=== PATIENT | female | born 1980 | race Two or more races ===

== ENCOUNTER 2018-12-21 21:58 | Emergency (ER) | payer MEDICAID ==
[~2018-12-21] VITALS: Ht 160 cm; Wt 70.8 kg
--- NOTE | 2018-12-21 22:30 | NUR ---
ED Nurse Note: RECIEVED PT FROM HOME ON [facility] AWAKE, ALERT AND ORIENTED X 4, PT HERE WITH C/O HEADACHE WITH DIZZINESS, NAUSEA AND EMESIS X 2 SINCE TODAY, PT DENEIS CP, SOB, FEVERS, DIARRHEA OR ANY OTHER COMPLAITNS, PT IS AMBULATORY WITH STEADY GAIT, DENIES ANY OTHER COMPLAINTS OR DISCOMFORTS, PT GOWNED AND ASSISTED TO CARDIAC MONITORING.
--- NOTE | 2018-12-21 22:50 | Emergency Room Report ---
History of Present Illness General Chief Complaint: Dizziness Source: Patient Present Illness HPI Patient presents 2 days of dizziness. She feels vertiginous when she is sitting or standing up. In addition to that she has headache during these episodes. There is no loss of consciousness. She feels nauseated and also epigastric pain during these times. She has not vomited. she's never had these episodes before. She denies any head trauma. No fevers, chills, tinnitus, ear pain, sore throat, chest pain, palpitations. She has not taken any medication. She rates the pain 9/10 when the episodes occur. She denies headache when she is not feeling dizzy. The headache is aching. It does not radiate. No history of diabetes or hypertension. No family history of strokes or aneurysms. Last menstrual period December 13 and normal for her. Allergies: Coded Allergies: No Known Allergies (Unverified , 12/21/18) Patient History Past Medical History: see triage record Social History: Denies: smoking Social History Narrative Not working at this time Last Menstrual Period: 12/13/2018 Now: No Reviewed Nursing Documentation: PMH: Agreed; PSxH: Agreed Nursing Documentation-PMH Past Medical History: No Stated History Review of Systems All Other Systems: negative except mentioned in HPI Physical Exam Vital Signs Date Time Temp Pulse Resp B/P (MAP) Pulse Ox O2 Delivery O2 Flow Rate FiO2 12/21/18 22:07 98.4 58 16 111/63 98 Room Air Sp02 EP Interpretation: reviewed, normal General Appearance: well appearing, no apparent distress, GCS 15 Head: normocephalic Eyes: bilateral eye normal inspection, bilateral eye PERRL, bilateral eye EOMI ENT: normal pharynx, TMs + canals normal, moist mucus membranes Neck: supple, no bony tend Respiratory: chest non-tender, lungs clear, normal breath sounds Cardiovascular #1: regular rate, rhythm Cardiovascular #2: 2+ radial (R) Gastrointestinal: normal inspection, normal bowel sounds, non tender, no mass, non-distended Musculoskeletal: back normal, gait/station normal, normal range of motion Neurologic: alert, oriented x3, rand tacker III-XII nml as tested, motor strength/tone normal, DTRs symmetric, sensory intact, cerebellar normal, normal gait, speech normal Psychiatric: anxious Skin: normal inspection, warm/dry Medical Decision Making Diagnostic Impression: Primary Impression: Cephalgia Qualified Codes: R51 - Headache Additional Impressions: Dizziness Epigastric pain ER Course Patient presents with what sounds like vertiginous dizziness associated with headache. Differential includes labyrinthitis, posterior fossa pathology, positional vertigo, viral syndrome, dehydration amongst others. She'll be evaluated with EKG, chest x-ray and labs. Patient be treated with Toradol and Zofran and Pepcid. She complains about epigastric pain along with the symptoms. Due to the nature of the pain CT of the head is indicated. EKG no injury. Chest x-ray clear. CT head normal. Labs unremarkable. Patient symptoms resolved completely with treatment. Discussed the need for outpatient follow-up and close observation. She was advised to return if the symptoms return. Patient stable for outpatient observation and treatment. Laboratory Tests Test 12/21/18 22:50 12/21/18 23:15 Urine Color Pale yellow Urine Appearance Slightly cloudy Urine pH 8 (4.5-8.0) Urine Specific [place] 1.015 (1.005-1.035) Urine Protein Negative (NEGATIVE) Urine Glucose (UA) Negative (NEGATIVE) Urine Ketones Negative (NEGATIVE) Urine Blood Negative (NEGATIVE) Urine Nitrite Negative (NEGATIVE) Urine Bilirubin Negative (NEGATIVE) Urine Urobilinogen Normal MG/DL (0.0-1.0) Urine Leukocyte Esterase 1+ (NEGATIVE) H Urine RBC 0-2 /HPF (0 - 2) Urine WBC 2-4 /HPF (0 - 2) Urine Squamous Epithelial Cells Few /LPF (NONE/OCC) Urine Bacteria Few /HPF (NONE) Urine HCG, Qualitative Negative (NEGATIVE) White Blood Count 9.8 K/UL (4.8-10.8) Red Blood Count 3.98 M/UL (4.20-5.40) L Hemoglobin 12.5 G/DL (12.0-16.0) Hematocrit 37.2 % (37.0-47.0) Mean Corpuscular Volume 93 FL (80-99) Mean Corpuscular Hemoglobin 31.3 PG (27.0-31.0) H Mean Corpuscular Hemoglobin Concent 33.5 G/DL (32.0-36.0) Red Cell Distribution Width 11.2 % (11.6-14.8) L Platelet Count 225 K/UL (150-450) Mean Platelet Volume 9.9 FL (6.5-10.1) Neutrophils (%) (Auto) 73.0 % (45.0-75.0) Lymphocytes (%) (Auto) 18.3 % (20.0-45.0) L Monocytes (%) (Auto) 7.6 % (1.0-10.0) Eosinophils (%) (Auto) 0.4 % (0.0-3.0) Basophils (%) (Auto) 0.7 % (0.0-2.0) Prothrombin Time 10.6 SEC (9.30-11.50) Prothrombin Time INR 1.0 (0.9-1.1) PTT 32 SEC (23-33) Sodium Level 139 MMOL/L (136-145) Potassium Level 3.8 MMOL/L (3.5-5.1) Chloride Level 105 MMOL/L (98-107) Carbon Dioxide Level 26 MMOL/L (21-32) Anion Gap 8 mmol/L (5-15) Blood Urea Nitrogen 17 mg/dL (7-18) Creatinine 0.8 MG/DL (0.55-1.30) Estimate Glomerular Filtration Rate > 60 mL/min (>60) Glucose Level 108 MG/DL (74-106) H Calcium Level 9.0 MG/DL (8.5-10.1) Total Bilirubin 0.3 MG/DL (0.2-1.0) Aspartate Amino Transferase (AST) 12 U/L (15-37) L Alanine Aminotransferase (ALT) 29 U/L (12-78) Alkaline Phosphatase 92 U/L (46-116) Total Creatine Kinase 83 U/L (26-308) Troponin I 0.008 ng/mL (0.000-0.056) Total Protein 7.7 G/DL (6.4-8.2) Albumin 3.9 G/DL (3.4-5.0) Globulin 3.8 g/dL Albumin/Globulin Ratio 1.0 (1.0-2.7) EKG Diagnostic Results Rate: bradycardiac Rhythm: NSR ST Segments: no acute changes - Rate 53 Rhythm Strip Diag. Results EP Interpretation: yes Rhythm: NSR, no PVC's, no ectopy Chest X-Ray Diagnostic Results Chest X-Ray Diagnostic Results : Chest X-Ray Ordered: Yes # of Views/Limited/Complete: 1 View Indication: Other EP Interpretation: Yes Interpretation: no consolidation, no effusion, no pneumothorax Impression: No acute disease Electronically Signed by: Electronically signed by Shailesh Brooks MD CT/MRI/US Diagnostic Results CT/MRI/US Diagnostic Results : Imaging Test Ordered: Head Impression No acute findings Last Vital Signs Date Time Temp Pulse Resp B/P (MAP) Pulse Ox O2 Delivery O2 Flow Rate FiO2 12/22/18 01:45 98.4 69 16 111/54 100 Room Air Status: improved Disposition: HOME, SELF-CARE Condition: Improved Scripts Ondansetron Odt* (ZOFRAN ODT*) 4 Mg Tab.rapdis 4 MG BC EVERY 8 HOURS, #10 TAB 0 Refills Prov: Shailesh Brooks MD 12/22/18 Ibuprofen* (MOTRIN*) 600 Mg Tablet 600 MG ORAL Q6H PRN for For Pain, #16 TAB Prov: Shailesh Brooks MD 12/22/18 Famotidine (PEPCID AC) 20 Mg Tablet 20 MG PO DAILY, #20 TAB Prov: Shailesh Brooks MD 12/22/18 Shailesh Brooks MD Dec 21, 2018 22:50
[2018-12-21] MEDS ORDERED: Ketorolac 30mg Inj IV ONE (23:00)
[2018-12-21 23:03] LABS: APPEARANCE,URINE SLIGHTLY CLOUDY; BILIRUBIN, URINE NEGATIVE (NEGATIVE); COLOR,URINE PALE YELLOW; GLUCOSE, URINE (UA) NEGATIVE (NEGATIVE); KETONES,URINE NEGATIVE (NEGATIVE); LEUKOCYTE ESTERASE ,URINE 1+ (NEGATIVE); NITRITE,URINE NEGATIVE (NEGATIVE); PH,URINE 8 (4.5-8.0); PROTEIN,URINE NEGATIVE (NEGATIVE); UROBILINOGEN,URINE NORMAL MG/DL (0.0-1.0)
[2018-12-21 23:33] LABS: BASOPHILS % (AUTO) 0.7 % (0.0-2.0); EOSINOPHILS % (AUTO) 0.4 % (0.0-3.0); HEMATOCRIT 37.2 % (37.0-47.0); HEMOGLOBIN 12.5 G/DL (12.0-16.0); LYMPHOCYTES % (AUTO) 18.3 % (20.0-45.0); MEAN CORPUSCULAR VOLUME 93 FL (80-99); MONOCYTES % (AUTO) 7.6 % (1.0-10.0); PLATELET COUNT 225 K/UL (150-450); RED BLOOD COUNT 3.98 M/UL (4.20-5.40); RED CELL DISTRIBUTION WIDTH 11.2 % (11.6-14.8); WHITE BLOOD COUNT 9.8 K/UL (4.8-10.8)
--- NOTE | 2018-12-21 23:37 | Diagnostic Imaging Report ---
EXAM: CT Head Without Intravenous Contrast CLINICAL HISTORY: DIZZY TECHNIQUE: Axial computed tomography images of the head/brain without intravenous contrast. CTDI is 0.15, 70.38 mGy and DLP is 1390 mGy-cm. One or more of the following dose reduction techniques were used: automated exposure control, adjustment of the mA and/or kV according to patient size, use of iterative reconstruction technique. COMPARISON: No relevant prior studies available. FINDINGS: Brain: No acute infarct, hemorrhage, mass or edema. No significant white matter disease. Ventricles: Unremarkable. No ventriculomegaly. Bones/joints: Unremarkable. No acute fracture. Soft tissues: Unremarkable. Sinuses: Mild mucosal thickening of the paranasal sinuses. Mastoid air cells: Unremarkable as visualized. No mastoid effusion. IMPRESSION: No acute findings.
--- NOTE | 2018-12-21 23:37 | Diagnostic Imaging Report ---
EXAM: XR Chest, 1 View CLINICAL HISTORY: DIZZY TECHNIQUE: Frontal view of the chest. COMPARISON: No relevant prior studies available. FINDINGS: Lungs: Unremarkable. No consolidation. Pleural space: Unremarkable. No pneumothorax. Heart: Unremarkable. No cardiomegaly. Mediastinum: Unremarkable. Bones/joints: Unremarkable. IMPRESSION: Normal chest x-ray.
[2018-12-21 23:40] LABS: ANION GAP 8 mmol/L (5-15); BLOOD UREA NITROGEN 17 mg/dL (7-18); CARBON DIOXIDE 26 MMOL/L (21-32); CHLORIDE 105 MMOL/L (98-107); CREATININE 0.8 MG/DL (0.55-1.30); POTASSIUM 3.8 MMOL/L (3.5-5.1); SODIUM 139 MMOL/L (136-145)
[2018-12-21 23:44] LABS: ALANINE AMINOTRANSFERASE 29 U/L (12-78); ALBUMIN 3.9 G/DL (3.4-5.0); ALKALINE PHOSPHATASE 92 U/L (46-116); ASPARTATE AMINO TRANSFERASE 12 U/L (15-37); BILIRUBIN,TOTAL 0.3 MG/DL (0.2-1.0); CREATINE KINASE 83 U/L (26-308)
[2018-12-22] VITALS: BP 104/57
--- NOTE | 2018-12-22 | NUR ---
ED Nurse Note: PT RESTING QUIETLY IN BED, MEDICATED ORDERED, MEDS EFFECTIVE, PT STATES DIZZINESS AND PAIN RESOLVED, ALSO NAUSEA, PT REMAINS ON CARDIAC MONITORING, ALL IMAGES TAKEN, PT WAITING FOR RESULTS AND DISPOSITION, FAMILY AT BEDSIDE, S.L INTACT AND PATENT, WILL CONTINUE TO CLOSELY MONITOR.
[2018-12-22 00:15] VITALS: BP 104/57
[2018-12-22] MEDS ORDERED: PEPCID AC20 M2 PO (01:18)
[2018-12-22] MEDS ORDERED: ONDANSETRON ODT4 MG BC (01:18)
[2018-12-22] MEDS ORDERED: IBUPROFEN600 MG ORAL (01:18)
[2018-12-22 01:30] VITALS: BP 111/54
--- NOTE | 2018-12-22 01:35 | NUR ---
ED Nurse Note: PT BEING D/C TO HOME, PT IS AWAKE, ALERT AND ORIENTED X 4, AMBULATORY WITH STEADY GAIT, DENIES PAIN, SOB, NAUSEA, OR HEADACHE, ALL S/S RESOLVED, PT WITH FAMILY MEMBER TO DRIVE HER, PT GIVEN F/U INFO, AFTER CARE INSTRUCTIONS AND RE-VERBALIZES PROPER MEDICATION ADMINISTRATION, TRANSLATION ASSISTANCE BY , PT IV LINE AND ARMBAND REMOVED WITHOUT COMPLICATIONS, NAD NOTED DURING PT D/C TO HOME.
[2018-12-22 01:45] VITALS: BP 111/54
[2018-12-22] MEDS ORDERED: LORazepam Inj 2mg/ml 1ml ONE (01:50)
--- NOTE | 2018-12-24 14:07 | Cardiology Report ---
APPROVED REPORT EKG Measurement Heart [id number] Sinus bradycardia Otherwise normal ECG
== END 2018-12-22 01:45 | disposition home or self-care (01) ==
LOC: EMR 22:25
DX: R51 Headache (principal); R42 Dizziness and giddiness; R10.13 Epigastric pain
CPT/HCPCS: 36415; 70450; 71045; 80053; 81003; 81025; 82550; 84484; 85025; 85610; 85730; 93005; 96361; 96374; 96375; 99284; J1885; J2405; S0028